=== PATIENT | female | born 1965 | race Caucasian/White ===

== ENCOUNTER 2024-02-11 15:50 | Emergency (ER) | payer OTHER, SELFPAY ==
--- NOTE | ~2024-02-11 | CT_ITS ---
EXAMINATION: CT ABDOMEN AND PELVIS WITH CONTRAST CLINICAL INFORMATION: Constipation; recent herniorrhaphy. COMPARISON: KUB dated 02/11/2024. TECHNIQUE: Multidetector volumetric images were obtained from the superior aspect of the liver through the pubic symphysis following administration 85 mL of Omnipaque 350 intravenous contrast. Sagittal and coronal reformatted images were obtained on the technologist's workstation. Oral contrast: No This CT examination was performed using dose optimization techniques as appropriate, variously including the following: *Automated exposure control *Adjustment of mA and/or kV according to patient size (this includes techniques or standardized protocols for targeted exams where dose is matched to indication/reason for exam; i.e. extremities or head) *Use of iterative reconstruction technique DLP: 356 mGy-cm FINDINGS: LUNG BASES: The visualized lung bases are unremarkable. LIVER, GALLBLADDER, AND BILIARY TREE: The liver is normal in size, shape, and attenuation. No focal hepatic lesion or biliary ductal dilatation is present. The gallbladder is unremarkable with no evidence of radiopaque gallstones, gallbladder wall thickening, or obvious pericholecystic inflammatory changes. PANCREAS: Unremarkable. SPLEEN: Unremarkable. ADRENAL GLANDS: Unremarkable. KIDNEYS AND URETERS: The kidneys are normal in size, shape, and attenuation. No hydronephrosis, hydroureter, or calculi seen. No perinephric stranding. BLADDER: Unremarkable. GASTROINTESTINAL TRACT: There is a small hiatus hernia. There is a mild to moderate stool burden. The small and large bowel are unremarkable. No obstruction, free intraperitoneal air or abscess is seen. There is no significant diverticulosis or diverticulitis. The vermiform appendix is unremarkable. ABDOMINAL WALL: No significant hernia is appreciated. LYMPH NODES: Normal. VASCULAR: Unremarkable. PELVIC VISCERA: The uterus and adnexa are unremarkable. There is a small to moderate amount of free fluid in the cul-de-sac. OSSEOUS STRUCTURES: There is marked degenerative disc disease at L5-S1. No acute or aggressive osseous finding is noted. CT/CT abdomen pelvis w IV con IMPRESSION: 1. There is a small to moderate amount of free fluid within the cul-de-sac. 2. There is a moderate stool burden. No bowel obstruction, free intraperitoneal air or abscess is seen. There is no appendicitis or diverticulitis. 3. No abdominopelvic lymphadenopathy is seen. 4. There is no urinary calculus or obstruction. 5. There is marked degenerative disc disease at L5-S1. Fleischner guidelines were followed.
--- NOTE | ~2024-02-11 | XR_ITS ---
EXAMINATION: XR ABDOMEN KUB CLINICAL INDICATION: pt. states had surgery on the 31 of January and has not had a good BM since. Experiencing bloating and stomach pains. COMPARISON: None available. TECHNIQUE: AP view of the abdomen. FINDINGS: The bowel gas pattern is normal with no evidence of ileus or obstruction. Small volume of formed stool scattered in the descending colon and pelvis. No unusual soft tissue calcifications are noted. The bones are unremarkable. XR/XR KUB IMPRESSION: Unremarkable examination.
[2024-02-11 16:26] VITALS: BP 136/82; PULSE 84; RESP 18; TEMP 37.2; O2SAT 99; BMI 21.4
--- NOTE | 2024-02-11 16:28 | ED_ITS ---
HPI - General Adult General Chief complaint: Abdominal Pain Stated complaint: surgery last week, possible blockage/dehydration Time Seen by Provider: 02/11/24 23:10 History of Present Illness ED Provider: Brooke LOMAS narrative: The patient is a 58-year-old woman who is generally in good health. Eleven days ago the patient had surgery at [facility] for a hiatal hernia. She had a fundoplication about 11 days ago. She was discharged from the hospital a couple of days later. She says that over the last couple of days she feels that her abdomen has been distended and she feels like she has not been able to pass any stools. She contacted her doctor who told her to go to an emergency room to ensure she did not have a bowel obstruction. Related Data Allergies Allergy/AdvReac Type Severity Reaction Status Date / Time amoxicillin Allergy Rash Verified 02/11/24 16:32 gatifloxacin [From Tequin] Allergy Rash Verified 02/11/24 16:32 Penicillins Allergy Rash Verified 02/11/24 16:32 Review of Systems 2 Review of Systems: Yes all other systems are reviewed and are negative [facility] Social History Social History Advance Directives: No Advance Directives Information Provided: No Do you have a plan to hurt others: No Plan Physical Exam ED Vital Signs: Vital Signs - 24 hr 02/11/24 16:26 02/11/24 18:47 02/11/24 20:52 Temperature 98.9 F 97.1 F 97.8 F Pulse Rate 84 77 77 Respiratory Rate 18 17 14 Blood Pressure 136/82 135/86 162/97 H Pulse Oximetry 99 100 97 Oxygen Delivery Method Room Air Room Air Room Air 02/12/24 00:35 02/12/24 00:44 Temperature 98.2 F 98.2 F Pulse Rate 68 68 Respiratory Rate 16 16 Blood Pressure 128/79 128/79 Pulse Oximetry 99 99 Oxygen Delivery Method Room Air Room Air BMI result Body Mass Index 21.4 Const General: cooperative, healthy appearing and no acute distress HENMT Face and sinus: Yes normal facial exam Mouth: Normal oral and palatal mucosa present Eyes General: appearance normal, both eyes and all related structures Alignment and Position: alignment normal Periorbital: periorbital findings normal Conjunctivae: conjunctivae normal EOM: EOMs intact bilaterally Neck Neck: Yes no JVD Resp Effort & Inspection: normal respiratory effort Auscultation: clear to auscultation bilaterally Cardio Rate: regular rate Rhythm: regular rhythm Heart sounds: S1 normal heart sound present and S2 normal heart sound present GI Other: The abdomen was possibly mildly distended on exam, but not grossly distended. Some mild diffuse tenderness without clear focal tenderness. Skin General skin exam: no rashes or lesions noted Neuro Other: The patient was awake, alert, and appropriate. Face was symmetrical. Speech was clear. She moves her extremities normally and seems grossly neurologically intact. Extrem General: Yes no pedal edema and Yes no calf tenderness Course Course Course Narrative: This is an RME: Additional HPI, ROS, PE not included below will be deferred to primary provider. RME assessment and note performed by: Camelia Clancy PA-C This is a [id number] who presents to the emergency department with complaints of inability to eat or drink, constipation, and abdominal pain since elective laparoscopic toupet fundoplication surgery performed with Dr. Mclaughlin at [facility] on January 31. Patient states that she saw her surgeon today who sent her here for evaluation in possible bowel obstruction. Abdomen feels full and distended. She was able to move her bowels several days ago however she has been using warz-bnb-[id number] laxatives, MiraLax without any relief. She now has a gurgling like sensation in her belly and is having trouble passing gas. Hypoactive bowel sounds. Plan: labs, UA, KUB xray. Requested records from [facility] Records from [facility] were sent over, placed at legal receptionist desk Medications Administered Discontinued Medications Generic Name Dose Route Start Last Admin Trade Name Freq PRN Reason Stop Dose Admin Sodium Chloride 1,000 mls @ 999 mls/hr 02/11/24 23:30 02/12/24 00:43 Ns IV 02/12/24 00:30 Infused .Q1H1M CRISTIANE Infusion Iohexol 85 ml 02/11/24 18:29 02/11/24 18:30 Iohexol 350 Mg/Ml 100 Ml Infus..Btl IV 02/11/24 18:30 85 ml ONCE ONE Administration Medical Decision Making Medical Decision Making [facility] Narrative: The patient is a very pleasant and ordinarily healthy 58-year-old who is 10 days postoperative from surgery for a hiatal hernia. She had a fundoplication surgery. ?she seems primarily concerned about the possibility of being significantly constipated. A CT scan of the abdomen and pelvis is not showing any acute complications of her surgeries. There is no bowel obstruction. There is no sign of obvious significant constipation or obstipation. I reassured the patient that there does not seem to be any definite acute process. Perhaps it is simply taking her bowels a while to recover from the surgery. She was given a leader of IV fluids as patient feels she has not been drinking all that much. Otherwise, she was appropriate for discharge to follow up with her surgeon. Lab Data 02/11/24 17:09 02/11/24 17:09 Labs: Lab Results 02/11/24 Range/Units 17:09 WBC 5.5 (4.8-10.8) X10*3/uL RBC 4.36 (4.20-5.50) X10*6/uL Hgb 13.6 (12.0-16.0) g/dl Hct 38.6 (37.0-47.0) % MCV 88.5 (80.0-98.0) fL MCH 31.2 (27.0-33.0) pg MCHC 35.2 H (31.0-35.0) g/dl RDW 12.1 (11.0-16.0) % Plt Count 253 (160-400) X10*3/uL MPV 8.8 L (9.4-12.3) fL Immature Gran % (Auto) 0.2 (0.0-0.4) % Neut % (Auto) 60.8 (45-73) % Lymph % (Auto) 29.9 (20-40) % [place] % (Auto) 8.0 (2-11) % Eos % (Auto) 0.9 (0-4) % Baso % (Auto) 0.2 (0-2) % Lymph # (Auto) 1.7 (1.2-4.9) X10*3/uL [place] # (Auto) 0.4 (0.1-1.2) X10*3/uL Eos # (Auto) 0.1 (0.0-0.4) X10*3/uL Baso # (Auto) 0.0 (0.0-0.2) X10*3/uL Abs Immat Gran (auto) 0.01 (0.00-0.03) X10*3/uL Absolute Neuts (auto) 3.4 (2.0-8.3) x10*3/uL Absolute Nucleated RBC 0.000 (0.0-0.012) X10*3/uL Nucleated RBC % (auto) 0.0 (0.0-0.2) /100WBC Sodium 140 (135-145) mmol/L Potassium 4.5 (3.3-5.1) mmol/L Chloride 103 (96-108) mmol/L Carbon Dioxide 29 (22-29) mmol/L Anion Gap 13 (12-20) BUN 7 L (9-16) mg/dL Creatinine 0.92 (0.5-1.4) mg/dL Estim Creat Clear Calc 52.0 Estimated GFR > 60 Random Glucose 94 (60-115) mg/dL Calcium 10.2 (8.4-10.2) mg/dL Magnesium 2.3 (1.6-2.6) mg/dL Total Bilirubin 0.5 (0.0-1.0) mg/dL Direct Bilirubin 0.1 (0.0-0.5) mg/dL AST 24 (5-31) U/L ALT 53 H (0-31) U/L Alkaline Phosphatase 58 (39-117) U/L Total Protein 7.1 (6.5-8.0) g/dL Albumin 4.6 (3.5-5.0) g/dL Lipase 27 (8-78) U/L Discharge Plan Discharge Clinical Impression: Abdominal pain Patient Disposition: Home, Self-Care Additional Instructions: Your testing in the emergency room today is reassuring. Your CT scan does not show any signs of a bowel obstruction. Additionally the CT scan does not show significant signs of constipation. I think it would be reasonable for you to continue MiraLax daily until it is clear that your bowels are working appropriately. Otherwise follow the dietary recommendations from your surgeon. Stay in touch with your surgeon for additional advice. Return to the emergency room if worse. Referrals: Cyndee Palencia DNP, SPORTS PHYSIOTHERAPIST-BC [Primary Care Provider] - Tai Mclaughlin MD [Physician] - Interventions: ED Discharge Assessment Last Done: 02/12/24 00:44 Discharge Date/Time: 02/12/24 00:45 Print Language: Polish
[2024-02-11 17:23] LABS: MANUAL DIFF FLAG NO
[2024-02-11 17:25] LABS: Basophils Percent Auto 0.2 % (0-2); Eosinophils Absolute Auto 0.1 X10*3/uL (0.0-0.4); Eosinophils Percent Auto 0.9 % (0-4); Hematocrit 38.6 % (37.0-47.0); Hemoglobin 13.6 g/dl (12.0-16.0); Imm Gran Abs Auto 0.01 X10*3/uL (0.00-0.03); Imm Gran Pct Auto 0.2 % (0.0-0.4); Lymphocytes Absolute Auto 1.7 X10*3/uL (1.2-4.9); Lymphocytes Percent Auto 29.9 % (20-40); Mean Corpuscular HGB Conc 35.2 g/dl (31.0-35.0); Mean Corpuscular Hemoglobin 31.2 pg (27.0-33.0); Mean Corpuscular Volume 88.5 fL (80.0-98.0); Mean Platelet Volume 8.8 fL (9.4-12.3); Monocytes Absolute Auto 0.4 X10*3/uL (0.1-1.2); Neutrophils Absolute Auto 3.4 x10*3/uL (2.0-8.3); Neutrophils Percent Auto 60.8 % (45-73); Platelet Count 253 X10*3/uL (160-400); Red Blood Count 4.36 X10*6/uL (4.20-5.50); Red Cell Distribution Width 12.1 % (11.0-16.0); White Blood Count 5.5 X10*3/uL (4.8-10.8)
[2024-02-11 17:50] LABS: Alanine Aminotransferase 53 U/L (0-31); Albumin Level 4.6 g/dL (3.5-5.0); Alkaline Phosphatase 58 U/L (39-117); Anion Gap 13 (12-20); Aspartate Amino Transferase 24 U/L (5-31); Bilirubin Direct 0.1 mg/dL (0.0-0.5); Bilirubin Total 0.5 mg/dL (0.0-1.0); Blood Urea Nitrogen 7 mg/dL (9-16); Calcium 10.2 mg/dL (8.4-10.2); Carbon Dioxide 29 mmol/L (22-29); Chloride 103 mmol/L (96-108); Estimated Glomerular Filt Rate > 60; Glucose Random 94 mg/dL (60-115); Lipase 27 U/L (8-78); Magnesium 2.3 mg/dL (1.6-2.6); Potassium 4.5 mmol/L (3.3-5.1); Sodium 140 mmol/L (135-145); Total Protein 7.1 g/dL (6.5-8.0)
[2024-02-11] MEDS: iohexoL 350 MG/ML 100 ML INFUS..BTL 85 ML IV (18:30)
[2024-02-11 18:47] VITALS: BP 135/86; PULSE 77; RESP 17; TEMP 36.2; O2SAT 100
[2024-02-11 20:52] VITALS: BP 162/97; PULSE 77; RESP 14; TEMP 36.6; O2SAT 97
--- NOTE | 2024-02-11 22:06 | PC.NURSE ---
pt asked if she can have anything to drink, explained to pt, would need to wait to see the doctor, understanding voiced
[2024-02-11] MEDS: 0.9 % Sodium Chloride 1,000 ML 999 ML IV (23:38)
[2024-02-12 00:35] VITALS: BP 128/79; PULSE 68; RESP 16; TEMP 36.8; O2SAT 99
[2024-02-12 00:44] VITALS: BP 128/79; PULSE 68; RESP 16; TEMP 36.8; O2SAT 99
== END 2024-02-12 00:45 | disposition home or self-care (01) ==
PROVIDERS: Physician Assistant Medical; Emergency Provider Emergency Medicine; PCP Nurse Practitioner Family
DX: R10.9 Unspecified abdominal pain (principal); G89.18 Other acute postprocedural pain
CPT/HCPCS: 36415; 74018; 74177; 80048; 80076; 83690; 83735; 85025; 96360; 99283; 99284; Q9967

== ENCOUNTER 2024-03-07 15:46 | Emergency (ER) | payer OTHER, SELFPAY ==
--- NOTE | ~2024-03-07 | CT_ITS ---
EXAMINATION: CT ABDOMEN AND PELVIS WITH CONTRAST CLINICAL INFORMATION: 5 weeks status post hiatal hernia repair, vomiting, abdominal pain. COMPARISON: CT abdomen/pelvis 02/11/2024. TECHNIQUE: Multidetector volumetric images were obtained from the superior aspect of the liver through the pubic symphysis following administration 85 mL of Omnipaque 350 intravenous contrast. Sagittal and coronal reformatted images were obtained on the technologist's workstation. Oral contrast: No This CT examination was performed using dose optimization techniques as appropriate, variously including the following: *Automated exposure control *Adjustment of mA and/or kV according to patient size (this includes techniques or standardized protocols for targeted exams where dose is matched to indication/reason for exam; i.e. extremities or head) *Use of iterative reconstruction technique DLP: 341 mGy-cm FINDINGS: LUNG BASES: The visualized lung bases are unremarkable. LIVER, GALLBLADDER, AND BILIARY TREE: The liver is normal in size, shape, and attenuation. Focal fatty infiltration adjacent to the fissure of the falciform ligament. Unchanged too small to characterize liver hypodensities (2:24 and 2:20). No biliary ductal dilatation is present. The gallbladder is unremarkable with no evidence of radiopaque gallstones, gallbladder wall thickening, or obvious pericholecystic inflammatory changes. PANCREAS: Unremarkable. SPLEEN: Unremarkable. ADRENAL GLANDS: Unremarkable. KIDNEYS AND URETERS: The kidneys are normal in size, shape, and attenuation. No hydronephrosis, hydroureter, or calculi seen. No perinephric stranding. BLADDER: Incompletely distended limiting assessment of wall thickening. No discrete focal abnormality. GASTROINTESTINAL TRACT: Interval postoperative changes seen in the gastroesophageal junction with suggestion of gastric fundoplication. Moderate gastric distention with internal debris. Mild fecalization of scattered loops of small bowel. Moderate to large degree of colonic and rectal stool burden. The appendix is mildly dilated measuring up to 0.8 cm in diameter, however this is similar compared to prior; there is air in the lumen of the distal appendix, no discrete appendicolith and no significant periappendiceal inflammatory changes. ABDOMINAL WALL: No significant hernia is appreciated. LYMPH NODES: No lymphadenopathy. VASCULAR: Normal caliber of the abdominal aorta. PELVIC VISCERA: Unremarkable. OSSEOUS STRUCTURES: No acute or aggressive appearing osseous findings. CT/CT abdomen pelvis w IV con IMPRESSION: 1. Interval postoperative changes in the gastroesophageal junction with suggestion of gastric fundoplication. Correlate with operative notes. 2. Moderate gastric distention with debris, could indicate postprandial state or gastroparesis. 3. Mild fecalization of scattered loops of small bowel and moderate to large degree of stool burden in the colon/rectum suggesting slow transit and constipation in the appropriate clinical content. 4. The appendix is mildly dilated measuring up to 0.8 cm in diameter, however this is similar compared to prior and there is air in the lumen of the distal appendix, no discrete appendicolith and no significant periappendiceal inflammatory changes. Findings are equivocal, recommend clinical correlation for early acute appendicitis Electronically signed by: Tiffany Puckett MD 03/07/2024 07:30 PM EDT
[2024-03-07 15:48] VITALS: BP 135/105; PULSE 86; RESP 19; TEMP 36.8; O2SAT 98; BMI 21.4
--- NOTE | 2024-03-07 15:49 | ED_ITS ---
HPI - General Adult General Chief complaint: Abdominal Pain Stated complaint: Post-op issues Time Seen by Provider: 03/07/24 17:09 Source: patient Mode of arrival: ambulatory Limitations: no limitations History of Present Illness ED Provider: Dr. Maki Alba HPI narrative: patient comes to the emergency room complaining of abdominal discomfort, nausea for couple of days. Patient is 5 weeks status post gastric fundoplication. Patient denies vomiting, no diarrhea. Patient feels distended. Patient was seen here on 02/11/2024 with similar complaints. Patient denies fever chills. Patient states that for the last couple of days she has not been able to tolerate much to eat, drink small sips of fluid. Becomes very nauseous but does not vomit. Related Data Previous Rx's ?Medication ?Instructions ?Recorded metoclopramide HCl 5 mg tablet 5 mg PO DAILY PRN nausea and 03/07/24 vomiting #14 tabs ondansetron HCl 4 mg tablet 4 mg PO Q6H PRN nausea and 03/07/24 vomiting #14 tabs Allergies Allergy/AdvReac Type Severity Reaction Status Date / Time amoxicillin Allergy Rash Verified 03/07/24 15:50 gatifloxacin [From Tequin] Allergy Rash Verified 03/07/24 15:50 Penicillins Allergy Rash Verified 03/07/24 15:50 Review of Systems 2 Review of Systems: Constitutional : No Weight loss, No Fever, No Chills, No Night Sweats, No Fatigue, No Malaise ENT/Mouth : No Hearing loss, No Ear Pain, No Nasal Congestion, No Sinus Pain, No Hoarseness, No sore throat, No Rhinorrhea, No Swallowing Difficulty Eyes: No Eye Pain, No Swelling, No Redness, No Foreign Body, No Discharge, No Vision Changes Cardiovascular : No Chest Pain, No SOB, No Dyspnea on Exertion, No Orthopnea, No Edema, No Palpitations Respiratory : No Cough, No Sputum, No Wheezing, No Smoke Exposure, No Dyspnea Gastrointestinal : Complaining of Nausea, No Vomiting, No Diarrhea, No Constipation, complaining of diffuse abdominal discomfort, distention Genitourinary : no irregular bleeding, No Dysuria, No Urinary Frequency, No Hematuria, No Urinary Incontinence, No Urgency, No Flank Pain, No Urinary Flow Changes, No Hesitancy Musculoskeletal : No joint pain, No Myalgias, No Joint Swelling Skin : No Skin Lesions, No rash Neuro : No Weakness, No Numbness, No Paresthesias, No Loss of Consciousness, No Dizziness, No Headache Psych : No Anxiety/Panic, No Depression, No SI/HI/AH/VH, No Social Issues, Heme/Lymph: No Bruising, No Bleeding,No Lymphadenopathy Endocrine : No Polyuria, No Polydipsia, No Temperature Intolerance [facility] Past Medical History Surgical History (Updated 03/07/24 @ 20:12 by Maki Alba MD) History of fundoplication Social History Social History Smoked in Last 30 Days: No Use of substances other than those prescribed or required for medical reasons: No Advance Directives: No Advance Directives Information Provided: No Do you have a plan to hurt others: No Plan Patient : No Physical Exam ED Vital Signs: Vital Signs - 24 hr 03/07/24 15:48 03/07/24 18:19 Temperature 98.2 F 99.0 F Pulse Rate 86 75 Respiratory Rate 19 16 Blood Pressure 135/105 H 139/67 Pulse Oximetry 98 96 Oxygen Delivery Method Room Air BMI result Body Mass Index 21.4 Const Other: Appearance: Alert. Oriented X3. patient seems uncomfortable. Eyes: Pupils equal, round and reactive to light. ENT: Pharynx normal. Neck: Normal inspection. Neck supple. No lymph nodes noted. No crepitus CVS: Normal heart rate and rhythm. Pulses normal. Normal S1 and S2 Respiratory: No respiratory distress. Breath sounds normal. No Wheezing. No rales Abdomen: Soft , nondistended, mild discomfort to palpation in the right lower quadrant, no rebound or guarding Skin: Skin warm and dry. Normal skin color. Normal skin turgor. Extremities: No lower extremity edema. No Lacerations. No Rash Neuro: Oriented X 3. No motor deficit. No sensory deficit. Moving all extremities. No slurred speech. CN 2 through 12 grossly intact Psych: calm, cooperative, normal affect Course Course Course Narrative: RME, this is a rapid medical exam performed by Zheng Orozco please refer to primary provider for complete H&P- 58 year old female presents for evaluation of abdominal discomfort, nausea, and vomiting. She reports that she had a hiatal hernia repair on 02/01/24 at [facility] with Dr Tai Mclaughlin. She reports her symptoms started last night with nausea, vomiting. She reports that she is still passing gas, but decreased compared to baseline. Plan for labs, UA, will defer any advanced imaging to primary provider. Medications Administered Discontinued Medications Generic Name Dose Route Start Last Admin Trade Name Sunni PRN Reason Stop Dose Admin Sodium Chloride 1,000 mls @ 999 mls/hr 03/07/24 17:22 03/07/24 18:59 Ns IVCONT 03/07/24 18:22 Infused .Q1H1M ONE Infusion Iohexol 100 ml 03/07/24 17:57 03/07/24 18:00 Iohexol 350 Mg/Ml 100 Ml Infus..Btl IV 03/07/24 17:58 85 ml ONCE ONE Administration Metoclopramide HCl 10 mg 03/07/24 17:22 03/07/24 17:44 Metoclopramide Hcl 10 Mg/2 Ml Vial IVPUSH 03/07/24 17:23 10 mg ONCE ONE Administration Ondansetron HCl 4 mg 03/07/24 19:46 03/07/24 20:18 Ondansetron Hcl 4 Mg/2 Ml Vial IVPUSH 03/07/24 19:47 4 mg ONCE ONE Administration Medical Decision Making Medical Decision Making [facility] Narrative: my interpretation of labs, normal hematology and chemistry normal LFTs, urinalysis negative for UTI - my interpretation of CT scan, large amount of food in the abdomen, likely gastroparesis - CT scan report: Gastroparesis, also the tip of the appendix is 0.8 cm. - I discussed the labs with the patient and CT scan findings with Dr. Carbajal. findings are not suggestive of appendicitis. Patient may be discharged home with some Reglan, and close follow-up with the patient's surgeon - patient was p.o. challenged, tolerated well Differential Diagnosis Differential Diagnoses: The differential diagnosis associated with the presentation includes ( gastroparesis, appendicitis, SBO) Admission/Observation Consideration of admission/observation: Escalation of care including admission/observation considered Consult Healthcare Provider Management of the patient was discussed with: Tow Motor Driver Lab Data [facility] Lab Attestation statement: I reviewed the patient's lab results. 03/07/24 16:04 03/07/24 16:04 Labs: Lab Results 03/07/24 Range/Units 16:04 WBC 5.6 (4.8-10.8) X10*3/uL RBC 4.55 (4.20-5.50) X10*6/uL Hgb 13.9 (12.0-16.0) g/dl Hct 40.1 (37.0-47.0) % MCV 88.1 (80.0-98.0) fL MCH 30.5 (27.0-33.0) pg MCHC 34.7 (31.0-35.0) g/dl RDW 12.3 (11.0-16.0) % Plt Count 200 (160-400) X10*3/uL MPV 8.7 L (9.4-12.3) fL Immature Gran % (Auto) 0.2 (0.0-0.4) % Neut % (Auto) 66.3 (45-73) % Lymph % (Auto) 26.6 (20-40) % [place] % (Auto) 6.1 (2-11) % Eos % (Auto) 0.4 (0-4) % Baso % (Auto) 0.4 (0-2) % Lymph # (Auto) 1.5 (1.2-4.9) X10*3/uL [place] # (Auto) 0.3 (0.1-1.2) X10*3/uL Eos # (Auto) 0.0 (0.0-0.4) X10*3/uL Baso # (Auto) 0.0 (0.0-0.2) X10*3/uL Abs Immat Gran (auto) 0.01 (0.00-0.03) X10*3/uL Absolute Neuts (auto) 3.7 (2.0-8.3) x10*3/uL Absolute Nucleated RBC 0.000 (0.0-0.012) X10*3/uL Nucleated RBC % (auto) 0.0 (0.0-0.2) /100WBC PT 11.8 (11.1-13.3) SEC INR 1.0 (0.9-1.1) Sodium 141 (135-145) mmol/L Potassium 4.0 (3.3-5.1) mmol/L Chloride 104 (96-108) mmol/L Carbon Dioxide 27 (22-29) mmol/L Anion Gap 14 (12-20) BUN 11 (9-16) mg/dL Creatinine 0.85 (0.5-1.4) mg/dL Estim Creat Clear Calc 56.4 Estimated GFR > 60 Random Glucose 100 (60-115) mg/dL Lactic Acid 0.8 (0.5-2.0) mmol/L Calcium 10.4 H (8.4-10.2) mg/dL Total Bilirubin 0.7 (0.0-1.0) mg/dL AST 22 (5-31) U/L ALT 29 (0-31) U/L Alkaline Phosphatase 49 (39-117) U/L Total Protein 7.2 (6.5-8.0) g/dL Albumin 4.8 (3.5-5.0) g/dL Lipase 25 (8-78) U/L Urine Color Yellow Urine Appearance Cloudy Urine pH 7.5 (5.0-9.0) Ur Specific [place] 1.010 (1.005-1.025) Urine Protein Negative (Neg-Trace) mg/dL Urine Glucose (UA) Negative (Negative) mg/dL Urine Ketones Trace (Negative) mg/dL Urine Blood Negative (Negative) Urine Nitrite Negative (Negative) Ur Leukocyte Esterase Small (1+) H (Negative) Urine RBC 0-2 (0-2) /HPF Urine WBC 0-5 (0-5) /HPF Ur Squamous Epith Cells 0-2 (0-2) /HPF Urine Bacteria None Seen (None Seen) Hyaline Casts 0-2 (0-2) /LPF Independent Interpretation I performed an independent interpretation of an: CT Scan Radiology Impression Discussion of test interpretation with radiology: I have reviewed the radiologist's reading. Radiologist Impression: FINDINGS: LUNG BASES: The visualized lung bases are unremarkable. LIVER, GALLBLADDER, AND BILIARY TREE: The liver is normal in size, shape, and attenuation. Focal fatty infiltration adjacent to the fissure of the falciform ligament. Unchanged too small to characterize liver hypodensities (2:24 and 2:20). No biliary ductal dilatation is present. The gallbladder is unremarkable with no evidence of radiopaque gallstones, gallbladder wall thickening, or obvious pericholecystic inflammatory changes. PANCREAS: Unremarkable. SPLEEN: Unremarkable. ADRENAL GLANDS: Unremarkable. KIDNEYS AND URETERS: The kidneys are normal in size, shape, and attenuation. No hydronephrosis, hydroureter, or calculi seen. No perinephric stranding. BLADDER: Incompletely distended limiting assessment of wall thickening. No discrete focal abnormality. GASTROINTESTINAL TRACT: Interval postoperative changes seen in the gastroesophageal junction with suggestion of gastric fundoplication. Moderate gastric distention with internal debris. Mild fecalization of scattered loops of small bowel. Moderate to large degree of colonic and rectal stool burden. The appendix is mildly dilated measuring up to 0.8 cm in diameter, however this is similar compared to prior; there is air in the lumen of the distal appendix, no discrete appendicolith and no significant periappendiceal inflammatory changes. ABDOMINAL WALL: No significant hernia is appreciated. LYMPH NODES: No lymphadenopathy. VASCULAR: Normal caliber of the abdominal aorta. PELVIC VISCERA: Unremarkable. OSSEOUS STRUCTURES: No acute or aggressive appearing osseous findings. CT/CT abdomen pelvis w IV con IMPRESSION: 1. Interval postoperative changes in the gastroesophageal junction with suggestion of gastric fundoplication. Correlate with operative notes. 2. Moderate gastric distention with debris, could indicate postprandial state or gastroparesis. 3. Mild fecalization of scattered loops of small bowel and moderate to large degree of stool burden in the colon/rectum suggesting slow transit and constipation in the appropriate clinical content. 4. The appendix is mildly dilated measuring up to 0.8 cm in diameter, however this is similar compared to prior and there is air in the lumen of the distal appendix, no discrete appendicolith and no significant periappendiceal inflammatory changes. Findings are equivocal, recommend clinical correlation for early acute appendicitis Critical Care Time Critical Care Time Critical Care Time: Yes Total Critical Care Time: 45 Attestation: I have personally provided critical care time. Time includes review of lab data, radiology results, discussion with consultants, and monitoring for potential decompensation. Intervention performed as documented. Discharge Plan Discharge Clinical Impression: Gastroparesis Patient Disposition: Home, Self-Care Instructions: Gastroparesis (ED) Additional Instructions: Please follow-up with your primary care physician tomorrow. If you have any worsening or new symptoms, please return to the emergency room or call 911 Prescriptions: New metoclopramide HCl 5 mg tablet 5 mg PO DAILY PRN (Reason: nausea and vomiting) Qty: 14 0RF ondansetron HCl 4 mg tablet 4 mg PO Q6H PRN (Reason: nausea and vomiting) Qty: 14 0RF Stand Alone Forms: Work/School Release Print Language: Swedish
[2024-03-07 16:10] LABS: MANUAL DIFF FLAG NO
[2024-03-07 16:11] LABS: Basophils Percent Auto 0.4 % (0-2); Eosinophils Percent Auto 0.4 % (0-4); Hematocrit 40.1 % (37.0-47.0); Hemoglobin 13.9 g/dl (12.0-16.0); Imm Gran Abs Auto 0.01 X10*3/uL (0.00-0.03); Imm Gran Pct Auto 0.2 % (0.0-0.4); Lymphocytes Absolute Auto 1.5 X10*3/uL (1.2-4.9); Lymphocytes Percent Auto 26.6 % (20-40); Mean Corpuscular HGB Conc 34.7 g/dl (31.0-35.0); Mean Corpuscular Hemoglobin 30.5 pg (27.0-33.0); Mean Corpuscular Volume 88.1 fL (80.0-98.0); Mean Platelet Volume 8.7 fL (9.4-12.3); Monocytes Absolute Auto 0.3 X10*3/uL (0.1-1.2); Monocytes Percent Auto 6.1 % (2-11); Neutrophils Absolute Auto 3.7 x10*3/uL (2.0-8.3); Neutrophils Percent Auto 66.3 % (45-73); Platelet Count 200 X10*3/uL (160-400); Red Blood Count 4.55 X10*6/uL (4.20-5.50); Red Cell Distribution Width 12.3 % (11.0-16.0); White Blood Count 5.6 X10*3/uL (4.8-10.8)
[2024-03-07 16:13] LABS: Appearance Urine Cloudy; Color Urine Yellow; Glucose Urine UA Negative (Negative); Leukocyte Esterase Urine Small (1+) (Negative); Nitrite Urine Negative (Negative); PH 7.5 (5.0-9.0); UMIC TRIGGER UACC YES; Urine Blood Negative (Negative); Urine Ketones Trace mg/dL (Negative); Urine Protein Negative (Neg-Trace)
[2024-03-07 16:19] LABS: Prothrombin Time 11.8 SEC (11.1-13.3)
[2024-03-07 16:22] LABS: Lactic Acid 0.8 mmol/L (0.5-2.0)
[2024-03-07 16:27] LABS: Alanine Aminotransferase 29 U/L (0-31); Albumin Level 4.8 g/dL (3.5-5.0); Alkaline Phosphatase 49 U/L (39-117); Anion Gap 14 (12-20); Aspartate Amino Transferase 22 U/L (5-31); Bilirubin Total 0.7 mg/dL (0.0-1.0); Blood Urea Nitrogen 11 mg/dL (9-16); Calcium 10.4 mg/dL (8.4-10.2); Carbon Dioxide 27 mmol/L (22-29); Chloride 104 mmol/L (96-108); Creatinine Clr Calc Pharmacy 56.4; Estimated Glomerular Filt Rate > 60; Glucose Random 100 mg/dL (60-115); Lipase 25 U/L (8-78); Sodium 141 mmol/L (135-145); Total Protein 7.2 g/dL (6.5-8.0)
[2024-03-07] MEDS: 0.9 % Sodium Chloride 1,000 ML 999 ML IVCONT (17:44)
[2024-03-07] MEDS: Metoclopramide HCl 10 MG/2 ML VIAL IVPUSH (17:44)
[2024-03-07 17:56] LABS: Bacteria Urine None Seen (None Seen); Hyaline Casts Urine 0-2 /LPF (0-2); Squamous Epithelial Cell Urine 0-2 /HPF (0-2); UACC Culture Trigger YES; WBC Urine 0-5 /HPF (0-5)
[2024-03-07 17:58] LABS: RBC Urine 0-2 /HPF (0-2)
[2024-03-07] MEDS: iohexoL 350 MG/ML 100 ML INFUS..BTL IV (18:00)
[2024-03-07 18:19] VITALS: BP 139/67; PULSE 75; RESP 16; TEMP 37.2; O2SAT 96
--- NOTE | 2024-03-07 18:59 | PC.NURSE ---
Assumed care of pt. Pt up to ambulate to bathroom, no acute distress noted at this time. Sts fels improved from arrival. Pending imaging read for disposition.
[2024-03-07] MEDS: ondansetron HCL 4 MG/2 ML VIAL IVPUSH (20:18)
[2024-03-07 20:37] VITALS: BP 139/67; PULSE 75; RESP 16; TEMP 37.2; O2SAT 96
== END 2024-03-07 20:37 | disposition home or self-care (01) ==
PROVIDERS: Physician Assistant; Emergency Provider Emergency Medicine; PCP Nurse Practitioner Family
DX: K31.84 Gastroparesis (principal); R10.9 Unspecified abdominal pain; R11.0 Nausea; Z79.899 Other long term (current) drug therapy
CPT/HCPCS: 36415; 74177; 80053; 81001; 83605; 83690; 85025; 85610; 87086; 96361; 96374; 96375; 99284; 99285; J2405; J2765; Q9967